=== PATIENT | male | born 1950 | race Caucasian/White ===

== ENCOUNTER 2017-08-21 08:13 | Outpatient (CLI) | payer OTHER ==
[2017-08-21] MEDS ORDERED: NORVASC5 MG PO (11:07)
[2017-08-21] MEDS ORDERED: DICLOFENAC POTA50 MG PO (11:07)
[2017-08-21] MEDS ORDERED: ROSUVASTATIN CAL5 MG PO (11:08)
[2017-08-21] MEDS ORDERED: CENTRUM SILVER1 EAC4 PO (11:08)
== END 2017-08-21 08:20 | disposition home or self-care (01) ==
LOC: RAD 08:13
DX: Z01.818 Encounter for other preprocedural examination (principal)

== ENCOUNTER 2017-08-28 05:55 | Day surgery (SDC) | payer OTHER ==
[~2017-08-28 05:55] MED LIST: CENTRUM SILVER1 EAC4 PO; DICLOFENAC POTA50 MG PO; NORVASC5 MG PO; ROSUVASTATIN CAL5 MG PO
[2017-08-28] MEDS ORDERED: PERCOCET 5-3251 EACH PO (09:28)
[2017-08-28] MEDS ORDERED: RECTICARE30 GM TOP (09:28)
== END 2017-08-28 15:35 | disposition home or self-care (01) ==
LOC: CIR.AMB 05:55
DX: K62.82 Dysplasia of anus (principal); A63.0 Anogenital (venereal) warts; K64.2 Third degree hemorrhoids; K64.4 Residual hemorrhoidal skin tags